=== PATIENT | female | born 1970 | race Caucasian/White ===

== ENCOUNTER 2017-12-23 12:14 | Emergency (ER) | payer MEDICAID ==
[2017-12-23] MEDS ORDERED: traMADol 50 MG Tab PO ONE (12:45)
--- NOTE | 2017-12-23 12:52 | EDM.PDOC ---
ED HPI GENERAL MEDICAL PROBLEM - General Chief Complaint: Back Pain or Injury Stated Complaint: LOWER BACK LEFT BACK Time Seen by Provider: 12/23/17 12:25 Source of Information: Reports: Patient History Limitations: Reports: No Limitations - History of Present Illness INITIAL COMMENTS - FREE TEXT/NARRATIVE: Bernie entered her downstairs apartment at 8 am today and slipped and fell, landing on a tiled floor striking her lower back and L posterior chest. There was no LOC. There is residual pain in L anterior chest worse with deep breaths and movement of the LUE overhead. There is some lower pelvic pain radiating into the thighs. She is ambulatory, and took some Tylenol for pain about an hour ago. Of interest is a PMH of Type II DM, compliance issues with management , and recent relocation to the [facility] from [place]. She takes Metformin bid, Glipizide prn, but does not check BSs. She is still fasting. lower back/back of the head/left side rib area Pain Score (Numeric/FACES): 6 - Related Data Allergies Allergy/AdvReac Type Severity Reaction Status Date / Time No Known Allergies Allergy Verified 12/23/17 12:26 Home Meds: Home Meds Omeprazole 20 mg PO DAILY 10/20/13 [History] Melatonin/Pyridoxine HCl (B6) [Melatonin 3 mg Tablet] 2 each PO BEDTIME [History] DULoxetine [Cymbalta] 120 mg PO DAILY 12/23/17 [History] metFORMIN [Glucophage] 1,000 mg PO BIDMEALS 12/23/17 [History] traMADol [Ultram] 50 mg PO Q6H PRN #14 tab 12/23/17 [Rx] Past Medical History - Past Health History Medical/Surgical History: Denies Medical/Surgical History Gastrointestinal History: Reports: GERD Psychiatric History: Reports: Depression Endocrine/Metabolic History: Reports: Diabetes, Type II - Past Surgical History Other Musculoskeletal Surgeries/Procedures:: ankle surgery. Social & Family History - Family History Family Medical History: Noncontributory - Tobacco Use Smoking Status *Q: Current Every Day Smoker Years of Tobacco use: 30 Packs/Tins Daily: 1 Second Hand Smoke Exposure: Yes - Caffeine Use Caffeine Use: Reports: Coffee - Alcohol Use Days Per Week of Alcohol Use: 0 - Recreational Drug Use Recreational Drug Use: No ED ROS GENERAL - Review of Systems Review Of Systems: See Below Constitutional: Reports: No Symptoms HEENT: Reports: No Symptoms Respiratory: Reports: No Symptoms Cardiovascular: Reports: Chest Pain Endocrine: Reports: No Symptoms GI/Abdominal: Reports: No Symptoms : Reports: No Symptoms Musculoskeletal: Reports: Leg Pain (both thighs), Muscle Pain (L anterior chest) , Other (some pelvic pain posterior) Skin: Reports: No Symptoms Neurological: Reports: No Symptoms Psychiatric: Reports: Depression Hematologic/Lymphatic: Reports: No Symptoms Immunologic: Reports: No Symptoms ED EXAM,LOWER BACK PAIN/INJURY - Physical Exam Exam: See Below Exam Limited By: No Limitations General Appearance: Alert, WD/WN, Anxious, Mild Distress Eye Exam: Bilateral Eye: EOMI, Normal Inspection, PERRL Ears: Normal External Exam Nose: Normal Inspection Throat/Mouth: Normal Inspection Head: Atraumatic, Normocephalic Neck: Normal Inspection, Supple, Non-Tender Respiratory/Chest: Lungs Clear, Normal Breath Sounds, Other (L anterior chest tenderness (pectoralis mm)) Cardiovascular: Normal Peripheral Pulses, Regular Rate, Rhythm, No Edema, No Murmur GI/Abdominal: Normal Bowel Sounds, Soft, Non-Tender, No Organomegaly, No Distention, No Mass (Female) Exam: Normal External Exam, Other (no tenderness of symphysis, iliac crests, or ischial tuberosities) Rectal (Female) Exam: Deferred Back Exam: Normal Inspection, Decreased Range of Motion (SFB of 45 deg, guarding with lateral and rotary bending, neg SI pain, neg SN pain, SSLR 90 deg) Extremities: Normal Inspection, Normal Range of Motion, Non-Tender Neurological: Alert, Normal Dorsiflexion, CN II-XII Intact, Normal Plantar Flexion, Normal Reflexes, No Motor/Sensory Deficits Psychiatric: Anxious Skin Exam: Warm, Dry Lymphatic: No Adenopathy Course - Vital Signs Text/Narrative:: Following assessment at the [facility], I administered Tramadol 50 mg po, and obtained some labs: BMP noted FBS 217 mg%, Hgba1C 8.8 %, UA noted 1+ protein, no ketones. Last Recorded V/S: Last Vital Signs Temp 36.8 C 12/23/17 12:14 Pulse 107 H 12/23/17 12:14 Resp 20 12/23/17 12:14 BP 149/109 H 12/23/17 12:14 Pulse Ox 98 12/23/17 12:14 - Orders/Labs/Meds Orders: Active Orders 24 hr Category Date Time Status UA W/MICROSCOPIC [URIN] Stat Lab 12/23/17 12:56 Ordered Labs: Laboratory Tests 12/23/17 12/23/17 12/23/17 Range/Units 12:53 12:53 12:56 Sodium 138 (135-145) mmol/L Potassium 4.0 (3.5-5.3) mmol/L Chloride 102 (100-110) mmol/L Carbon Dioxide 25 (21-32) mmol/L BUN 8 (7-18) mg/dL Creatinine 0.7 (0.55-1.02) mg/dL Est Cr Clr Drug Dosing 89.40 mL/min Estimated GFR (MDRD) > 60 (>60) BUN/Creatinine Ratio 11.4 (9-20) Glucose 217 H (80-116) mg/dL Hemoglobin A1c 8.8 H (4.5-6.2) % Calcium 9.3 (8.6-10.2) mg/dL Urine Color Yellow (YELLOW) Urine Appearance Clear (CLEAR) Urine pH 5.0 (5.0-6.5) Ur Specific [place] 1.015 (1.010-1.025) Urine Protein 30 H (NEGATIVE) mg/dL Urine Glucose (UA) Normal (NEGATIVE) mg/dL Urine Ketones Negative (NEGATIVE) mg/dL Urine Occult Blood Negative (NEGATIVE) Urine Nitrite Negative (NEGATIVE) Urine Bilirubin Negative (NEGATIVE) Urine Urobilinogen Normal (NEGATIVE) mg/dL Ur Leukocyte Esterase Negative (NEGATIVE) Urine RBC 0-5 (0) Urine WBC 0-5 (0) Ur Squamous Epith Cells Occasional (NS,R,O) Urine Bacteria Moderate H (NS) Meds: Medications Discontinued Medications Generic Name Dose Route Start Last Admin Trade Name Freq PRN Reason Stop Dose Admin Tramadol HCl 50 mg 12/23/17 12:45 12/23/17 12:51 Ultram PO 12/23/17 12:46 50 mg ONETIME ONE Administration Departure - Departure Time of Disposition: 13:39 Disposition: Home, Self-Care 01 Condition: Fair Clinical Impression: Strain of muscle of multiple sites Type 2 diabetes mellitus Qualifiers: Diabetes mellitus intermediate insulin use: without label sewer use Diabetes mellitus complication status: without complication Qualified Code(s): E11.9 - Type 2 diabetes mellitus without complications - Discharge Information Referrals: Kesha Turner NP [Primary Care Provider] - Forms: ED Department Discharge - Problem List & Annotations (1) Strain of muscle of multiple sites SNOMED Code(s): 12786619 Code(s): T07.XXXA - UNSPECIFIED MULTIPLE INJURIES, INITIAL ENCOUNTER Status : Acute Current Visit: Yes Annotation/Comment:: I dispensed Tramadol 50 mg qid prn for pain, Tylenol as needed, rest, and activity as tolerated. She will need to establish with a PCP. (2) Type 2 diabetes mellitus SNOMED Code(s): 69456225 Code(s): E11.9 - TYPE 2 DIABETES MELLITUS WITHOUT COMPLICATIONS Status: Acute Current Visit: Yes Annotation/Comment:: Need to establish with PCP. Qualifiers: Diabetes mellitus intermediate insulin use: without intermediate use Diabetes mellitus complication status: without complication Qualified Code(s): E11.9 - Type 2 diabetes mellitus without complications - Problem List Review Problem List Initiated/Reviewed/Updated: Yes - My Orders Last 24 Hours: My Active Orders 12/23/17 12:56 UA W/MICROSCOPIC [URIN] Stat - Assessment/Plan Last 24 Hours: My Active Orders 12/23/17 12:56 UA W/MICROSCOPIC [URIN] Stat Plan: Follow up with PCP tomorrow at [facility].
[2017-12-23 13:58] VITALS: BP 126/90
== END 2017-12-23 13:55 | disposition home or self-care (01) ==
LOC: FB.ED 12:14
DX: S29.011A Strain of muscle and tendon of front wall of thorax, initial encounter (principal); E11.9 Type 2 diabetes mellitus without complications; K21.9 Gastro-esophageal reflux disease without esophagitis; F32.9 Major depressive disorder, single episode, unspecified; F17.210 Nicotine dependence, cigarettes, uncomplicated; Z79.899 Other long term (current) drug therapy; Z79.84 Long term (current) use of oral hypoglycemic drugs; W01.0XXA Fall on same level from slipping, tripping and stumbling without subsequent striking against object, initial encounter
CPT/HCPCS: 36415; 80048; 81001; 83036; 99283; A9270

== ENCOUNTER 2018-01-31 08:07 | Emergency (ER) | payer MEDICAID ==
[2018-01-31] MEDS ORDERED: Ketorolac 30 MG/ML SDV IVPUSH ONE (08:22)
[2018-01-31] MEDS: Sodium Chloride 0.9% 10 ML Syringe FLUSH PRN ×3 (08:30→10:56)
[2018-01-31] MEDS ORDERED: Alum Hydroxide/Mag Hydroxide 30 ML, Lidocaine 2% 15 ML PO ONE ×2 (08:55)
[2018-01-31] MEDS ORDERED: Sodium Chloride 0.9% 1,000 ML IV SCH (09:00)
--- NOTE | 2018-01-31 09:12 | EDM.PDOC ---
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, comes in and says the pain is no different took no meds at home pt is hyperventilating, did get a little relief from Toradol, will give a GI cocktail nothing to eat today, did drink a Monster drink no n/v last BM yesterday, soft, wnl has had a colonoscopy done, says she is due for another some soreness at L lower ribs under breast after a fall at home 6w ago EKG with [address] (c/w hyperventilation and anxiety), no ST changes, 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 [facility], pt had lived in [facility] and had her surgeries done there, will check with [facility] re old EKGs PSH: choly, c/s x 3, JASMYNE with BSO, thinks she had an appy with one of her surgeries SH: smoked 1.5 ppd x 33y, stopped a few months ago in order to be around her granddaughter, lives alone in a basement apt, her dtr lives in one of the apt's above ROS: A1C 8.8 form 6w ago, BUN/creat 8/0.7 and glu 217 from 6w ago, last CBC from 3y ago with hgb 18.4 Right Abdomen Pain Score (Numeric/FACES): 8 - Related Data Allergies Allergy/AdvReac Type Severity Reaction Status Date / Time No Known Allergies Allergy Verified 01/31/18 08:50 Home Meds: Home Meds Omeprazole 20 mg PO DAILY 10/20/13 [History] Melatonin/Pyridoxine HCl (B6) [Melatonin 3 mg Tablet] 2 each PO BEDTIME [History] ALPRAZolam [Alprazolam] 0.25 mg PO TID PRN 01/31/18 [History] Lisinopril 5 mg PO DAILY 01/31/18 [History] Meloxicam 15 mg PO DAILY #30 tablet 01/31/18 [Rx] glipiZIDE [Glipizide ER] 5 mg PO DAILY 01/31/18 [History] traMADol HCl [Tramadol HCl] 50 mg PO Q6H PRN #15 tablet 01/31/18 [Rx] Past Medical History - Past Health History Medical/Surgical History: Denies Medical/Surgical History Gastrointestinal History: Reports: GERD Psychiatric History: Reports: Depression Endocrine/Metabolic History: Reports: Diabetes, Type II - Past Surgical History Other Musculoskeletal Surgeries/Procedures:: ankle surgery. Social & Family History - Family History Family Medical History: Noncontributory - Caffeine Use Caffeine Use: Reports: Coffee ED ROS GENERAL - Review of Systems Review Of Systems: See Below Constitutional: Reports: No Symptoms HEENT: Reports: No Symptoms Respiratory: Reports: No Symptoms. Denies: Shortness of Breath Cardiovascular: Reports: No Symptoms. Denies: Chest Pain Endocrine: Reports: No Symptoms GI/Abdominal: Reports: Abdominal Pain. Denies: Constipation, Diarrhea, Nausea, Vomiting : Reports: No Symptoms Musculoskeletal: Reports: No Symptoms Skin: Reports: No Symptoms Neurological: Reports: No Symptoms Psychiatric: Reports: No Symptoms Hematologic/Lymphatic: Reports: No Symptoms Immunologic: Reports: No Symptoms ED EXAM, GI/ABD - Physical Exam Exam: See Below Exam Limited By: No Limitations General Appearance: Alert, WD/WN, Mild Distress Eyes: Bilateral: Normal Appearance Ears: Normal External Exam, Hearing Grossly Normal Nose: Normal Inspection, Normal Mucosa, No Blood Throat/Mouth: Normal Inspection, Normal Lips, Normal Teeth, Normal Gums, Normal Oropharynx, Normal Voice, No Airway Compromise Head: Atraumatic, Normocephalic Neck: Normal Inspection, Supple, Non-Tender, Full Range of Motion. No: Lymphadenopathy (R), Lymphadenopathy (L) Respiratory/Chest: No Respiratory Distress, Lungs Clear, Normal Breath Sounds, No Accessory Muscle Use, Chest Non-Tender Cardiovascular: No Gallop, No Murmur, No Rub, Tachycardia, Other (regular, 2/6 SEMAJ at LSB, quiet precordium) GI/Abdominal Exam: Normal Bowel Sounds, Soft, No Organomegaly, No Distention, No Mass, Other (obese, slight tender perhaps at RUQ, no guard, no rebound, no epigastric tender, good BS x 4, no CVAT b/l) Extremities: Normal Range of Motion, Non-Tender, Other (2+ edema to knees b/l, 1 + edema to groin b/l) Neurological: Alert, Oriented, CN II-XII Intact, Normal Cognition, Normal Gait, No Motor/Sensory Deficits Psychiatric: Anxious Skin Exam: Warm, Dry, Intact, Normal Color, No Rash Lymphatic: No Adenopathy Course - Vital Signs Last Recorded V/S: Last Vital Signs Temp 36.9 C 01/31/18 08:07 Pulse 115 H 01/31/18 10:53 Resp 18 01/31/18 10:53 BP 131/91 H 01/31/18 10:53 Pulse Ox 98 01/31/18 10:53 - Orders/Labs/Meds Orders: Active Orders 24 hr Category Date Time Status Abdomen Pelvis w Cont [CT] Stat Exams 01/31/18 10:31 Taken Ang Chest [CT] Stat Exams 01/31/18 10:31 Taken UA W/MICROSCOPIC [URIN] Stat Lab 01/31/18 09:40 Ordered Diatrizoate Nighat/Diatrizoate Na [Gastrografin 37%] Med 01/31/18 11:15 Active 30 ml PO . DIRECTED Sodium Chloride 0.9% [Normal Saline] 1,000 ml Med 01/31/18 09:00 Active IV ASDIRECTED Sodium Chloride 0.9% [Saline Flush] Med 01/31/18 08:22 Active 10 ml FLUSH ASDIRECTED PRN Saline Lock Insert [OM.PC] Routine Oth 01/31/18 08:22 Ordered EKG 12 Lead [EK] Routine Ther 01/31/18 08:40 Ordered Medication Orders Diatrizoate Meglum/Diatrizoate Sod (Gastrografin 37%) 30 ml PO . DIRECTED UZAIR Last Admin: 01/31/18 12:42 Dose: 30 ml Sodium Chloride (Normal Saline) 1,000 mls @ 999 mls/hr IV ASDIRECTED UZAIR Last Admin: 01/31/18 09:20 Dose: 999 mls/hr Sodium Chloride (Saline Flush) 10 ml FLUSH ASDIRECTED PRN PRN Reason: Keep Vein Open Last Admin: 01/31/18 10:56 Dose: 10 ml Admin: 05/11/18 08:33 Dose: 10 ml Admin: 01/31/18 08:30 Dose: 10 ml Labs: Laboratory Tests 01/31/18 01/31/18 01/31/18 Range/Units 09:00 09:00 09:00 WBC 13.4 H (4.5-12.0) X10-3/uL RBC 4.58 (3.23-5.20) x10(6)uL Hgb 14.7 D (11.5-15.5) g/dL Hct 43.2 (30.0-51.3) % MCV 94.3 (80-96) fL MCH 32.1 (27.7-33.6) pg MCHC 34.0 (32.2-35.4) g/dL RDW 12.9 (11.5-15.5) % Plt Count 236 (125-369) X10(3)uL MPV 10.5 H (7.4-10.4) fL Neut % (Auto) 87.8 H (46-82) % Lymph % (Auto) 8.1 L (13-37) % [place] % (Auto) 3.4 L (4-12) % Eos % (Auto) 0 L (1.0-5.0) % Baso % (Auto) 0 (0-2) % Neut # (Auto) 11.7 H (1.6-8.3) # Lymph # (Auto) 1.1 (0.6-5.0) # [place] # (Auto) 0.5 (0.0-1.3) # Eos # (Auto) 0.1 (0.0-0.8) # Baso # (Auto) 0.0 (0.0-0.2) # D-Dimer, Quantitative (0.0-0.59) mg/LFEU Sodium 136 (135-145) mmol/L Potassium 4.0 (3.5-5.3) mmol/L Chloride 100 (100-110) mmol/L Carbon Dioxide 23 (21-32) mmol/L BUN 12 (7-18) mg/dL Creatinine 0.8 (0.55-1.02) mg/dL Est Cr Clr Drug Dosing TNP Estimated GFR (MDRD) > 60 (>60) BUN/Creatinine Ratio 15.0 (9-20) Glucose 186 H (80-116) mg/dL Calcium 9.2 (8.6-10.2) mg/dL Total Bilirubin 0.4 (0.1-1.3) mg/dL AST 79 H (5-25) IU/L ALT 87 H (12-36) U/L Alkaline Phosphatase 146 H (56-112) IU/L Troponin I < 0.017 L (<0.017-0.056) ng/mL C-Reactive Protein 2.5 H (0.5-0.9) mg/dL NT-Pro-B Natriuret Pep (<=125) pg/mL Total Protein 8.2 H (6.0-8.0) g/dL Albumin 3.2 L (3.5-5.2) g/dL Globulin 5.0 g/dL Albumin/Globulin Ratio 0.6 Amylase 34 (25-115) U/L Urine Color (YELLOW) Urine Appearance (CLEAR) Urine pH (5.0-6.5) Ur Specific [place] (1.010-1.025) Urine Protein (NEGATIVE) mg/dL Urine Glucose (UA) (NEGATIVE) mg/dL Urine Ketones (NEGATIVE) mg/dL Urine Occult Blood (NEGATIVE) Urine Nitrite (NEGATIVE) Urine Bilirubin (NEGATIVE) Urine Urobilinogen (NEGATIVE) mg/dL Ur Leukocyte Esterase (NEGATIVE) Urine RBC (0) Urine WBC (0) Ur Squamous Epith Cells (NS,R,O) Urine Bacteria (NS) Urine Mucus (NS) 01/31/18 01/31/18 01/31/18 Range/Units 09:00 09:00 09:40 WBC (4.5-12.0) X10-3/uL RBC (3.23-5.20) x10(6)uL Hgb (11.5-15.5) g/dL Hct (30.0-51.3) % MCV (80-96) fL MCH (27.7-33.6) pg MCHC (32.2-35.4) g/dL RDW (11.5-15.5) % Plt Count (125-369) X10(3)uL MPV (7.4-10.4) fL Neut % (Auto) (46-82) % Lymph % (Auto) (13-37) % [place] % (Auto) (4-12) % Eos % (Auto) (1.0-5.0) % Baso % (Auto) (0-2) % Neut # (Auto) (1.6-8.3) # Lymph # (Auto) (0.6-5.0) # [place] # (Auto) (0.0-1.3) # Eos # (Auto) (0.0-0.8) # Baso # (Auto) (0.0-0.2) # D-Dimer, Quantitative 1.24 H* (0.0-0.59) mg/LFEU Sodium (135-145) mmol/L Potassium (3.5-5.3) mmol/L Chloride (100-110) mmol/L Carbon Dioxide (21-32) mmol/L BUN (7-18) mg/dL Creatinine (0.55-1.02) mg/dL Est Cr Clr Drug Dosing Estimated GFR (MDRD) (>60) BUN/Creatinine Ratio (9-20) Glucose (80-116) mg/dL Calcium (8.6-10.2) mg/dL Total Bilirubin (0.1-1.3) mg/dL AST (5-25) IU/L ALT (12-36) U/L Alkaline Phosphatase (56-112) IU/L Troponin I (<0.017-0.056) ng/mL C-Reactive Protein (0.5-0.9) mg/dL NT-Pro-B Natriuret Pep 12 (<=125) pg/mL Total Protein (6.0-8.0) g/dL Albumin (3.5-5.2) g/dL Globulin g/dL Albumin/Globulin Ratio Amylase (25-115) U/L Urine Color Yellow (YELLOW) Urine Appearance Clear (CLEAR) Urine pH 5.0 (5.0-6.5) Ur Specific [place] 1.020 (1.010-1.025) Urine Protein 500 H (NEGATIVE) mg/dL Urine Glucose (UA) Normal (NEGATIVE) mg/dL Urine Ketones Negative (NEGATIVE) mg/dL Urine Occult Blood Negative (NEGATIVE) Urine Nitrite Negative (NEGATIVE) Urine Bilirubin Negative (NEGATIVE) Urine Urobilinogen Normal (NEGATIVE) mg/dL Ur Leukocyte Esterase Negative (NEGATIVE) Urine RBC Not seen (0) Urine WBC 0-5 (0) Ur Squamous Epith Cells Few H (NS,R,O) Urine Bacteria Few H (NS) Urine Mucus Few H (NS) Meds: Medications Generic Name Dose Route Start Last Admin Trade Name Freq PRN Reason Stop Dose Admin Diatrizoate Meglum/Diatrizoate Sod 30 ml 01/31/18 11:15 01/31/18 12:42 Gastrografin 37% PO 30 ml . DIRECTED UZAIR Administration Sodium Chloride 1,000 mls @ 999 mls/hr 01/31/18 09:00 01/31/18 09:20 Normal Saline IV 999 mls/hr ASDIRECTED UZAIR Administration Sodium Chloride 10 ml 01/31/18 08:22 01/31/18 10:56 Saline Flush FLUSH 10 ml ASDIRECTED PRN Administration Keep Vein Open Discontinued Medications Generic Name Dose Route Start Last Admin Trade Name Louisa PRN Reason Stop Dose Admin Al Hydroxide/Mg Hydroxide 30 0 ml 01/31/18 08:55 01/31/18 09:15 ml/ Lidocaine HCl 15 ml PO 01/31/18 08:56 45 ml ONETIME ONE Administration Iopamidol 150 ml 01/31/18 11:11 01/31/18 12:42 Isovue-370 (76%) IV 01/31/18 11:12 111 ml ONETIME ONE Administration Ketorolac Tromethamine 30 mg 01/31/18 08:22 01/31/18 08:31 Toradol IVPUSH 01/31/18 08:23 30 mg ONETIME ONE Administration Morphine Sulfate 4 mg 01/31/18 10:30 01/31/18 10:47 Morphine IVPUSH 01/31/18 10:31 4 mg ONETIME ONE Administration Ondansetron HCl 4 mg 01/31/18 10:30 01/31/18 10:49 Zofran IVPUSH 01/31/18 10:31 4 mg ONETIME ONE Administration - Re-Assessments/Exams Free Text/Narrative Re-Assessment/Exam: 01/31/18 13:59 inc'd d-dimer 1.24 (2x ULN) chest CTA neg except atelectasis at L base and multiple old healing rib fx's on L c/w pt's prior fall WBC 13.4 c/w hyperventilation syndrome CRP 2.5, AST 79 (3.2x ULN), ALT 87 (2.4x ULN), alk phos 146 (1.3 ULN) are all c/ w healing ribs CT of abd/pelvis with no acute process Lorenzo Pickard had no old EKG pt asked for food multiple times and was much more comfortable after meds Departure - Departure Time of Disposition: 14:03 Disposition: Home, Self-Care 01 Condition: Good Clinical Impression: Atelectasis of right lung, Abnormal EKG, Hyperventilation syndrome Ribs, multiple fractures Qualifiers: Encounter type: subsequent encounter Fracture type: closed Laterality: left Fracture healing: with routine healing Qualified Code(s): S22.42XD - Multiple fractures of ribs, left side, subsequent encounter for fracture with routine healing - Discharge Information Prescriptions: Meloxicam 15 mg PO DAILY #30 tablet traMADol HCl [Tramadol HCl] 50 mg PO Q6H PRN #15 tablet PRN Reason: Pain Instructions: Atelectasis, Adult, Rib Fracture, Hyperventilation Referrals: Ada Hamilton MACHINE [employer] [Primary Care Provider] - Forms: ED Department Discharge Additional Instructions: For pain and inflammation, take meloxicam 15 mg 1 tab daily with food for 2 weeks. For pain and inflammation, take acetaminophen 500 mg 2 tabs 4 times a day for 2 weeks. For pain, as needed, take tramadol 50 mg 1 tab every 6 hours. No alcohol. Use heat for 10 minutes several times a day as needed. See your doctor in 3 days. You do have changes on your EKG that suggest that you may have had a heart attack some time in the past. You will want to discuss this further with your physician. Call your Physician or Return to Emergency Department if: * Your condition worsens in any way. * You develop fever greater than 100.4. * You have vomitting that does not stop with medications. * You have pain that is not controlled with medications. - My Orders Last 24 Hours: My Active Orders 01/31/18 08:22 Sodium Chloride 0.9% [Saline Flush] 10 ml FLUSH ASDIRECTED PRN Saline Lock Insert [OM.PC] Routine 01/31/18 08:40 EKG 12 Lead [EK] Routine 01/31/18 09:00 Sodium Chloride 0.9% [Normal Saline] 1,000 ml IV ASDIRECTED 01/31/18 09:40 UA W/MICROSCOPIC [URIN] Stat 01/31/18 10:31 Abdomen Pelvis w Cont [CT] Stat Ang Chest [CT] Stat 01/31/18 11:15 Diatrizoate Nighat/Diatrizoate Na [Gastrografin 37%] 30 ml PO . DIRECTED - Assessment/Plan Last 24 Hours: My Active Orders 01/31/18 08:22 Sodium Chloride 0.9% [Saline Flush] 10 ml FLUSH ASDIRECTED PRN Saline Lock Insert [OM.PC] Routine 01/31/18 08:40 EKG 12 Lead [EK] Routine 01/31/18 09:00 Sodium Chloride 0.9% [Normal Saline] 1,000 ml IV ASDIRECTED 01/31/18 09:40 UA W/MICROSCOPIC [URIN] Stat 01/31/18 10:31 Abdomen Pelvis w Cont [CT] Stat Ang Chest [CT] Stat 01/31/18 11:15 Diatrizoate Nighat/Diatrizoate Na [Gastrografin 37%] 30 ml PO . DIRECTED
[2018-01-31] MEDS ORDERED: Ondansetron 4 MG/2 ML SDV IVPUSH ONE (10:30)
[2018-01-31] MEDS ORDERED: Morphine 4 MG/ML Syringe IVPUSH ONE (10:30)
[2018-01-31] MEDS ORDERED: Iopamidol 755 MG/ML 150 ML Bottle IV ONE (11:11)
[2018-01-31] MEDS ORDERED: Diatrizoate Meglumine/Diatrizoate Sodium 37% 30 ML Bottle PO SCH (11:15)
--- NOTE | 2018-01-31 14:07 | CT ---
INDICATION: Increased D-dimer, right upper quadrant pain, question PE. CT ANGIOGRAPHY WITHOUT CONTRAST FOR PULMONARY ARTERIES: Spiral 1.25 mm axial sections were obtained through the chest with 111 mL Isovue 370 at 3 mL/second with sagittal and coronal reconstructions 01/31/2018. No comparisons were available. Total exam DLP = 757.58 mGy-cm. Mediastinal lymphadenopathy is noted with nodes measuring 14 to 15 mm left lateral of the aortic arch. Additional paraesophageal and aortopulmonary window nodes also noted. These are nonspecific. No pericardial effusion was seen. The heart is near the upper limits of normal in size. No mediastinal masses were identified. There is interstitial prominence of the lungs. The interstitial changes may be on the basis of CHF with a somewhat prominent heart. There also appears to be infiltration and/or atelectasis in the lingula and both lower lobes. There may also be some pneumonia in the lingula and both lower lobes, although atelectasis is felt to be prominent. The interstitial changes could also be on the basis of pneumonia. Findings should be correlated clinically in that regard. No gross consolidating pneumonia or significant sized effusion could be identified. Localized pleural reaction in the areas of infiltration is suggested, however. No definite mediastinal mass was identified. Interstitial infiltration with linear densities compatible with atelectasis and possibly some patchy pneumonia in the lower lobes and lingula. Findings should be correlated clinically. With the enlarged heart, the possibility of CHF and interstitial lung edema is a consideration. No definite evidence of pulmonary emboli could be identified. Healing rib fractures are noted at the 3rd, 4th, 5th, 6th, and 7th ribs laterally. IMPRESSION: 1. No pulmonary emboli identified. 2. Bilateral pleural parenchymal changes compatible with atelectasis and possibly patchy pneumonia. 3. Somewhat prominent appearing heart with interstitial changes, raising question of CHF and interstitial lung edema - correlate clinically. 4. Multiple healing rib fractures are noted on the left. MTDD
--- NOTE | 2018-01-31 14:44 | CT ---
INDICATION: Increased LFTs, left upper quadrant pain, increased CRP, question etiology, status post cholecystectomy. CT ABDOMEN AND CT PELVIS WITH CONTRAST: Spiral 1.25 mm axial sections were obtained through the abdomen and pelvis with 100 mL Isovue 370 already injected for the previous CT chest angiography. Total exam DLP = 2,576.73 mGy-cm. The gallbladder is absent, compatible with history of its removal. The uterus is absent, compatible with history of its removal. The liver had a normal appearance. No intrahepatic biliary tree dilatation was seen. The common bile duct was normal in caliber. The pancreas, spleen, and adrenal glands were unremarkable. No evidence of obstructive uropathy, mass lesions, or definite calculi could be identified. There did appear to be apical cortical scarring at the right kidney. Urinary bladder appears normal. A mild degree of sigmoid diverticulosis is noted without definite evidence of diverticulitis. No free air was seen. No definite mass lesions, organomegaly, or free fluid collections were identified in the abdomen or pelvis. There is noted thickening of the wall of the gastric antrum, which could be on the basis of antritis or peptic ulcer disease and should be correlated clinically. Calcifications are noted in the abdominal aorta and iliac arteries. Inguinal lymphadenopathy is noted bilaterally, somewhat more prominently on the left. Degenerative changes sacroiliac joints, minimal on the right and moderate to moderately severe on the left. No evidence of hernia could be identified. IMPRESSION: 1. Post hysterectomy. 2. Post cholecystectomy. 3. Post appendectomy. 4. Renal cortical scarring upper pole right kidney. 5. ASD. 6. Degenerative changes sacroiliac joints, minimal on the right and moderate to moderately severe on the left. 7. Mild sigmoid diverticulosis without evidence of diverticulitis. 8. No definite findings identified to indicate a source for the patients right upper quadrant pain or increased LFTs. Report was called to Dr. Anders at 1331 hours on 01/31/2018. NICKOLAS
[2018-01-31 16:05] VITALS: BP 118/79
== END 2018-01-31 14:30 | disposition home or self-care (01) ==
LOC: FB.ED 08:07
DX: J98.11 Atelectasis (principal); R94.31 Abnormal electrocardiogram [ECG] [EKG]; F45.8 Other somatoform disorders; S22.42XD Multiple fractures of ribs, left side, subsequent encounter for fracture with routine healing; E11.9 Type 2 diabetes mellitus without complications; Z79.899 Other long term (current) drug therapy
CPT/HCPCS: 36415; 71275; 74177; 80053; 81001; 82150; 83880; 84484; 85025; 85379; 86140; 93005; 96361; 96374; 96375; 99284; A9270; J1885; J2270; J2405; J7040; J7050; Q9963; Q9967

== ENCOUNTER 2019-01-03 03:32 | Emergency (ER) | payer MEDICAID ==
[2019-01-03] MEDS ORDERED: Ketorolac 60 MG/2 ML SDV IM ONE (03:54)
--- NOTE | 2019-01-03 04:03 | EDM.PDOC ---
ED HPI GENERAL MEDICAL PROBLEM - General Chief Complaint: Back Pain or Injury Stated Complaint: FELL AND HURT BACK Time Seen by Provider: 01/03/19 03:32 Source of Information: Reports: Patient, Family (son) History Limitations: Reports: Physical Impairment - History of Present Illness INITIAL COMMENTS - FREE TEXT/NARRATIVE: 48 y.o.w.mei came by wheelchair to the ed shortly after she fell 4 steps down the stairs, on her back. She complaints of pain at her mid upper back, left upper back and mid lower back/Lumbar spine. No H/A No N/V/D no dizziness. No LOC. Pt fell in the past from which she broke ribs at her left side. No Neck pain. No and. pain. No other acute medical issues. BP 119/47 RR 20 Pulse ox 98% on RA. Pulse 111, Temp 36.4 Onset Date: 01/03/19 Onset Time: 03:05 Duration: Getting Worse Location: Reports: Chest, Back (upper/lower/chest) Quality: Reports: Ache, Burning, Dull, Throbbing Severity: Moderate Improves with: Reports: Rest Worsens with: Reports: Movement Context: Reports: Trauma (fall down the stairs) Associated Symptoms: Reports: Chest Pain (/back pain) Treatments DESIGN ENG: Reports: Other (see below) (none) Lower back & L posterior rib Pain Score (Numeric/FACES): 8 - Related Data Allergies Allergy/AdvReac Type Severity Reaction Status Date / Time No Known Allergies Allergy Verified 01/03/19 03:36 Home Meds: Home Meds Acetaminophen/HYDROcodone [[place] 325-5 MG] 1 - 2 tab PO Q6H PRN #10 tab [Rx] metFORMIN [Glucophage] 1,000 mg PO BIDMEALS 01/03/19 [History] Past Medical History - Past Health History Medical/Surgical History: Denies Medical/Surgical History Cardiovascular History: Reports: Hypertension Respiratory History: Reports: Sleep Apnea Gastrointestinal History: Reports: GERD Genitourinary History: Reports: Urinary Incontinence Other Genitourinary History: leaking AUTOMATION QA ANALYST History: Reports: Other AUTOMATION QA ANALYST History: Musculoskeletal History: Reports: Fracture Other Musculoskeletal History: hx fx pelvis, L ankle, ribs, Neurological History: Reports: Migraines Psychiatric History: Reports: Anxiety, Depression Endocrine/Metabolic History: Reports: Diabetes, Type II, Obesity/BMI 30+ Hematologic History: Reports: Blood Transfusion(s) - Infectious Disease History Infectious Disease History: Reports: Chicken Pox - Past Surgical History GI Surgical History: Reports: Appendectomy, Cholecystectomy, Colonoscopy, EGD Female Surgical History: Reports: Section, Hysterectomy, Oophorectomy Other Female Surgeries/Procedures: CS x 3 Musculoskeletal Surgical History: Reports: Arthroscopic Knee, ORIF Other Musculoskeletal Surgeries/Procedures:: L ankle surgery, L knee surgery, R foot surgery, L leg hematoma, Social & Family History - Family History Family Medical History: Noncontributory - Tobacco Use Smoking Status *Q: Current Every Day Smoker Years of Tobacco use: 35 Packs/Tins Daily: 0.4 - Caffeine Use Caffeine Use: Reports: Coffee, Energy Drinks, Soda, Tea - Recreational Drug Use Recreational Drug Use: No ED ROS GENERAL - Review of Systems Review Of Systems: See Below Constitutional: Reports: No Symptoms HEENT: Reports: No Symptoms Respiratory: Reports: No Symptoms Cardiovascular: Reports: No Symptoms Endocrine: Reports: No Symptoms GI/Abdominal: Reports: No Symptoms : Reports: No Symptoms Musculoskeletal: Reports: Shoulder Pain, Back Pain Skin: Reports: No Symptoms Neurological: Reports: No Symptoms Psychiatric: Reports: No Symptoms Hematologic/Lymphatic: Reports: No Symptoms Immunologic: Reports: No Symptoms ED EXAM, UPPER BACK/NECK PAIN - Physical Exam Exam: See Below Exam Limited By: No Limitations General Appearance: Alert, WD/WN, Mild Distress, Obese Eye Exam: Bilateral Eye: Normal Inspection Ears Exam: Normal External Exam Nose Exam: Normal Inspection, Normal Mucousa, No Blood Throat/Mouth Exam: Normal Inspection, Normal Lips, Normal Oropharynx, Normal Voice Head Exam: Atraumatic, Normocephalic Neck Exam: Non-Tender, Full Range of Motion, Normal Alignment, Normal Inspection Cardiovascular/Respiratory: Regular Rate, Rhythm, Normal Peripheral Pulses, No JVD, Normal Breath Sounds (decr due to pain on inspiration) GI/Abdominal: Normal Bowel Sounds, Soft, Non-Tender, No Organomegaly, No Distention (Female) Exam: Deferred Rectal (Female) Exam: Deferred Back Exam: Normal Inspection, Decreased Range of Motion, Paraspinal Tenderness, Vertebral Tenderness Extremities: Normal Inspection, Normal Range of Motion, Non-Tender, No Pedal Edema Neurologic: sign maintenance II-XII nml As Tested, No Motor/Sensory Deficits, Alert, Normal Mood/Affect, Oriented x 3 Psychiatric: Normal Affect, Normal Mood Skin Exam: Normal Color, Warm/Dry Lymphatic: No Adenopathy Course - Vital Signs Text/Narrative:: 48 y.o.w.f came by wheelchair to the ed shortly after she fell 4 steps down the stairs, on her back. She complaints of pain at her mid upper back, left upper back and mid lower back/Lumbar spine. No H/A No N/V/D no dizziness. No LOC. Pt fell in the past from which she broke ribs at her left side. No Neck pain. No and. pain. No other acute medical issues. BP 119/47 RR 20 Pulse ox 98% on RA. Pulse 111, Temp 36.4 PE: Obese 48 y.o.w.f with back/chest pain after a fall down the stairs. Imaging: CT Chest/Lumbar spine: Angulation left ant ribs 2-7, possible subtle acute Fractures. L spine: NAD Impression: Fall down the stairs, subtle acute left Fractures. Tx: ICE, Toradol, [place] Reexam: Improved pain went from 07/02 to 01/30 Plan: D/C with instructions Last Recorded V/S: Last Vital Signs Temp 36.4 C 01/03/19 03:32 Pulse 100 01/03/19 04:30 Resp 20 01/03/19 04:30 BP 150/100 H 01/03/19 04:30 Pulse Ox 98 01/03/19 04:30 - Orders/Labs/Meds Orders: Active Orders 24 hr Category Date Time Status Chest wo Cont [CT] Stat Exams 01/03/19 03:58 Taken Lumbar Spine wo Cont [CT] Stat Exams 01/03/19 03:58 Taken Meds: Medications Discontinued Medications Generic Name Dose Route Start Last Admin Trade Name Freq PRN Reason Stop Dose Admin Hydrocodone Bitart/Acetaminophen 1 tab 01/03/19 05:31 01/03/19 05:34 [place] 325-5 Mg PO 01/03/19 05:32 1 tab ONETIME ONE Administration Ketorolac Tromethamine 60 mg 01/03/19 03:54 01/03/19 04:01 Toradol IM 01/03/19 03:55 60 mg ONETIME ONE Administration Departure - Departure Time of Disposition: 05:31 Disposition: Home, Self-Care 01 Condition: Good Clinical Impression: Fall, Rib fractures - Discharge Information Prescriptions: Acetaminophen/HYDROcodone [[place] 325-5 MG] 1 - 2 tab PO Q6H PRN #10 tab PRN Reason: for severe pain only Instructions: Acetaminophen; Hydrocodone tablets or capsules, Ketorolac injection, Rib Fracture, [id number] Referrals: PCP,None [Primary Care Provider] - Forms: ED Department Discharge Additional Instructions: Please apply ice to the affected area, please please take Motrin with food, if tolerated, please take [place] for severe pain only. Please f/u, come back if your symptoms get worse acutely - My Orders Last 24 Hours: My Active Orders 01/03/19 03:58 Chest wo Cont [CT] Stat Lumbar Spine wo Cont [CT] Stat - Assessment/Plan Last 24 Hours: My Active Orders 01/03/19 03:58 Chest wo Cont [CT] Stat Lumbar Spine wo Cont [CT] Stat
[2019-01-03 04:19] VITALS: BP 150/100
[2019-01-03] MEDS ORDERED: Acetaminophen/HYDROcodone 325-5 MG Tab PO ONE (05:31)
== END 2019-01-03 05:40 | disposition home or self-care (01) ==
LOC: FB.ED 03:32
DX: S22.42XA Multiple fractures of ribs, left side, initial encounter for closed fracture (principal); E11.9 Type 2 diabetes mellitus without complications; F17.210 Nicotine dependence, cigarettes, uncomplicated; Z79.84 Long term (current) use of oral hypoglycemic drugs; W10.9XXA Fall (on) (from) unspecified stairs and steps, initial encounter
CPT/HCPCS: 71250; 72131; 96372; 99283-25; A9270-GY; J1885

== ENCOUNTER 2022-07-26 13:21 | Emergency (ER) | payer MEDICAID ==
[2022-07-26] MEDS ORDERED: Ketorolac 30 MG/ML SDV IVPUSH ONE (13:59)
[2022-07-26 14:16] LABS: ESTIMATED GFR 104 mL/min (>60)
[2022-07-26 16:26] VITALS: BP 164/103; PULSE 90
[2022-07-26] MEDS ORDERED: Doxycycline 100 MG Tab PO ONE (17:15)
== END 2022-07-26 17:33 | disposition home or self-care (01) ==
LOC: FB.ED 13:21
DX: R07.9 Chest pain, unspecified (principal); I10 Essential (primary) hypertension; K21.9 Gastro-esophageal reflux disease without esophagitis; E11.9 Type 2 diabetes mellitus without complications; F17.290 Nicotine dependence, other tobacco product, uncomplicated; E66.9 Obesity, unspecified; Z68.33 Body mass index [BMI] 33.0-33.9, adult; Z88.6 Allergy status to analgesic agent; Z79.84 Long term (current) use of oral hypoglycemic drugs; Z79.899 Other long term (current) drug therapy
CPT/HCPCS: 36415; 71046; 80053; 81001; 84484; 85025; 85379; 86140; 93005; 96374; 99285; J1885

== ENCOUNTER 2022-10-04 09:31 | Emergency (ER) | payer MEDICAID ==
[2022-10-04 14:46] VITALS: BP 122/88; PULSE 105
== END 2022-10-04 11:25 | disposition home or self-care (01) ==
LOC: FB.ED 09:31
DX: K62.5 Hemorrhage of anus and rectum (principal); K64.4 Residual hemorrhoidal skin tags; E78.00 Pure hypercholesterolemia, unspecified; I10 Essential (primary) hypertension; K21.9 Gastro-esophageal reflux disease without esophagitis; E11.9 Type 2 diabetes mellitus without complications; E66.9 Obesity, unspecified; Z88.8 Allergy status to other drugs, medicaments and biological substances; Z79.84 Long term (current) use of oral hypoglycemic drugs; Z79.899 Other long term (current) drug therapy; Z68.35 Body mass index [BMI] 35.0-35.9, adult
CPT/HCPCS: 36415; 85018; 99283

== ENCOUNTER 2023-03-26 10:39 | Emergency (ER) | payer MEDICAID ==
[2023-03-26] MEDS ORDERED: Ketorolac 30 MG/ML SDV IM ONE (11:25)
[2023-03-26 13:11] VITALS: BP 114/72; PULSE 75
== END 2023-03-26 12:23 | disposition home or self-care (01) ==
LOC: FB.ED 10:39
DX: S29.011A Strain of muscle and tendon of front wall of thorax, initial encounter (principal); E11.9 Type 2 diabetes mellitus without complications; K21.9 Gastro-esophageal reflux disease without esophagitis; I10 Essential (primary) hypertension; E66.9 Obesity, unspecified; Z68.30 Body mass index [BMI] 30.0-30.9, adult; Z86.16 Personal history of COVID-19; Z79.84 Long term (current) use of oral hypoglycemic drugs; Z79.899 Other long term (current) drug therapy; X50.0XXA Overexertion from strenuous movement or load, initial encounter
CPT/HCPCS: 71101; 96372; 99283; J1885

== ENCOUNTER 2024-01-25 00:24 | Emergency (ER) | payer MEDICAID ==
[2024-01-25 01:34] LABS: BLOOD UREA NITROGEN,BUN 15 mg/dL (7-18); BUN/CREATININE RATIO 16.7 (9-20); CARBON DIOXIDE,CO2 28 mmol/L (21-32); CHLORIDE,CL 103 mmol/L (100-110); CREATININE 0.9 mg/dL (0.55-1.02); EST CRCL DRUG DOSING (CG) 67.67 mL/min; ESTIMATED GFR 76 mL/min (>60); GLUCOSE RANDOM 299 mg/dL (80-116); POTASSIUM,K 3.9 mmol/L (3.5-5.3); SODIUM,NA 138 mmol/L (135-145)
[2024-01-25 01:34] LABS: BILIRUBIN,URINE NEGATIVE (NEGATIVE); GLUCOSE,URINE >1000 mg/dL (NORMAL); KETONES,URINE NEGATIVE (NEGATIVE); LEUKOCYTE ESTERASE,URINE NEGATIVE (NEGATIVE); NITRITE,URINE NEGATIVE (NEGATIVE); OCCULT BLOOD,URINE NEGATIVE (NEGATIVE); PROTEIN,URINE 30 mg/dL (NEGATIVE); UROBILINOGEN,URINE NORMAL (NEGATIVE)
[2024-01-25 01:40] LABS: A/G RATIO 0.7; ALANINE AMINOTRANSFERASE,ALT 69 U/L (12-36); ALKALINE PHOSPHATASE 104 IU/L (56-112); ASPARTATE AMNIOTRANSFERASE,AST 41 IU/L (5-25); BILIRUBIN TOTAL 0.4 mg/dL (0.1-1.3); MAGNESIUM 1.6 mg/dL (1.8-2.5); PROTEIN TOTAL,TP 7.5 g/dL (6.0-8.0)
[2024-01-25 01:42] LABS: APPEARANCE,URINE CLEAR (CLEAR); BACTERIA,URINE FEW (NS); COLOR,URINE YELLOW (YELLOW); RBC,URINE 0-5 (0-5); SQUAMOUS EPITHELIAL CELLS,UR FEW (NS,R,O); WBC,URINE 0-5 (0-5)
[2024-01-25 01:47] LABS: BASOPHILS ABSOLUTE AUTO 0.1 x10-3/uL (0.0-0.1); BASOPHILS PERCENT AUTO 0.9 % (0.2-1.5); EOSINOPHILS ABSOLUTE AUTO 0.1 x10-3/uL (0.0-0.8); EOSINOPHILS PERCENT AUTO 1.9 % (0.6-8.1); HEMATOCRIT 39.9 % (34.2-48.2); HEMOGLOBIN 13.2 g/dL (11.4-15.5); LYMPHOCYTES ABSOLUTE AUTO 1.4 x10-3/uL (1.0-4.4); LYMPHOCYTES PERCENT AUTO 20.4 % (18.4-52.1); MEAN CORPUSCULAR HEMOGLOBIN 28.6 pg (23.9-33.9); MEAN CORPUSCULAR HGB CONC 33.2 g/dL (31.9-34.8); MEAN CORPUSCULAR VOLUME 86.3 fL (76.7-100.5); MEAN PLATELET VOLUME 10.3 fL (7.1-12.4); MONOCYTES ABSOLUTE AUTO 0.5 x10-3/uL (0.3-1.0); MONOCYTES PERCENT AUTO 7.1 % (4.4-15.7); NEUTROPHILS ABSOLUTE AUTO 4.9 x10-3/uL (1.5-6.3); NEUTROPHILS PERCENT AUTO 69.7 % (30.8-76.2); PLATELET COUNT,PLT 206 x10(3)uL (151-488); RED CELL DISTRIBUTION WIDTH 25.6 % (12.3-16.5); WHITE BLOOD CELL COUNT,WBC 7.1 x10-3/uL (3.0-10.3)
[2024-01-25 01:53] LABS: RED BLOOD CELL COUNT 4.62 x10(6)uL (3.60-5.20)
[2024-01-25] MEDS: Magnesium Oxide 400 MG Tab PO ONE (02:01)
[2024-01-25 02:06] VITALS: BP 118/85; PULSE 105
[2024-01-25] MEDS: Acetaminophen 500 MG Tab PO ONE (02:07)
== END 2024-01-25 02:14 | disposition home or self-care (01) ==
LOC: FB.ED 00:24 → MERGE 00:24 → FB.ED 02:14
DX: E83.42 Hypomagnesemia (principal); R21 Rash and other nonspecific skin eruption; F41.9 Anxiety disorder, unspecified; E11.65 Type 2 diabetes mellitus with hyperglycemia; I10 Essential (primary) hypertension; Z88.6 Allergy status to analgesic agent; Z79.899 Other long term (current) drug therapy; Z90.49 Acquired absence of other specified parts of digestive tract; Z90.710 Acquired absence of both cervix and uterus
CPT/HCPCS: 36415; 80053; 81001; 82947; 83735; 85025; 99284; A9270-GY